=== PATIENT | male | born 1965 | race Caucasian/White ===

== ENCOUNTER 2020-02-14 12:04 | Inpatient (IN) | payer MEDICAID ==
[2020-02-14] VITALS (7 sets, daily range): BP systolic 72–122; BP diastolic 29–86
[~2020-02-14] VITALS: Ht 182.9 cm; Wt 120.0 kg
[~2020-02-14 12:04] MED LIST: SODIUM BICARB 8.4%, 50ML SYRINGE ONE
[2020-02-14] MEDS ORDERED: VECURONIUM 10 MG ONE (12:11)
[2020-02-14] MEDS ORDERED: OCTREOTIDE 100MCG/ML, 1ML (0.1MG/ML) ONE (12:12)
[2020-02-14] MEDS ORDERED: PANTOPRAZOLE 40 MG IV ONE (12:12)
[2020-02-14] MEDS ORDERED: PANTOPRAZOLE 80 MG in SODIUM CHLORIDE 0.9% 50 ML IVPB ONE (12:15)
[2020-02-14] MEDS ORDERED: PANTOPRAZOLE 80 MG in SODIUM CHLORIDE 0.9% 100 ML IV SCH ×2 (12:15→15:30)
--- NOTE | 2020-02-14 12:29 | NUR ---
BIB BY YUKO FOR VARICEAL BLEED->BRADYCARDIA/LOST PULSES I ROUND OF CPR WITH 40 UNITS OF VASOPRESSIN. [facility]. [facility] INTUBATED GAVE 4 UNITS OF PRBC, 2 UNITS OF PLASMA, 1550 KCENTRA, 1H TXA, 40 PROTONIX, OCTREOTIDE PUSH AND INTUBATED ON ARRIVAL PATIENT CRITICAL BUT STABLE ON ETT, RILEY BLOOD FROM NG NOTED
[2020-02-14] MEDS ORDERED: VECURONIUM 10 MG IVPush ONE (12:30)
[2020-02-14] MEDS ORDERED: OCTREOTIDE 500 MCG in SODIUM CHLORIDE 0.9% 99 ML IV PRN ×2 (12:30→15:30)
[2020-02-14] MEDS ORDERED: SODIUM CHLORIDE 0.9% 1,000ML IVBOLUS ONE ×2 (12:30→15:00)
[2020-02-14] MEDS ORDERED: PLEASE ENTER HEIGHT AND WEIGHT MC SCH (12:30)
[2020-02-14] MEDS ORDERED: OCTREOTIDE 100MCG/ML, 1ML (0.1MG/ML) IV ONE (12:30)
[2020-02-14] MEDS ORDERED: PLEASE ENTER ALLERGIES MC SCH (12:30)
--- NOTE | 2020-02-14 12:30 | NUR ---
LAB AT BEDSIDE 500ML OF RILEY BLOOD NOTED FROM NG-PROVIDER WOULD LIKE 2 UNITS UNMATACHED PRBC [facility]OOD BANK CALLED
[2020-02-14 12:39] LABS: MEAN CORPUSCULAR HEMOGLOBIN 28.9 pg (27.5-34.5); MEAN CORPUSCULAR HGB CONC 31.4 g/dL (33.2-36.2); MEAN PLATELET VOLUME 6.7 fL (7.4-10.4); PLATELET COUNT 260 x10^3/uL (130-400); RED CELL DISTRIBUTION WIDTH 16.7 % (9.4-14.8)
--- NOTE | 2020-02-14 12:45 | NUR ---
1 UNIT PRBC STARTED VIA PRESSURE BAG/ WELL 1 LITER OF NS
[2020-02-14 12:47] LABS: INTERNATIONAL NORMALIZED RATIO 1.25 (0.93-1.1); PROTHROMBIN TIME 12.9 Seconds (9.6-11.5)
[2020-02-14 12:48] LABS: ALANINE AMINOTRANSFERASE 290 U/L (12-78); ALBUMIN 1.6 g/dL (3.4-5.0); ANION GAP 20 mmol/L (5-15); CALCIUM 7.8 mg/dL (8.5-10.1); CHLORIDE 106 mmol/L (98-107); CREATININE 1.78 mg/dL (0.7-1.3)
[2020-02-14 12:50] LABS: ALKALINE PHOSPHATASE 91 U/L (45-117); BILIRUBIN,TOTAL 0.5 mg/dL (0.2-1.0); MD YES; TOTAL PROTEIN 4.2 g/dL (6.4-8.2)
--- NOTE | 2020-02-14 12:50 | NUR ---
/, 90, 1ST UNIT OF PRBC COMPLETE ([id number]) SECOND UNIT INFUSING RAPIDLY VIA TRANSFUSER RILEY BLOOD DRAINING AT RAPID RATE FROM NG PROTONIX/OCTREOTIDE DRIPS STARTED
--- NOTE | 2020-02-14 12:50 | NUR ---
2ND UNIT OF PRBCS ADMINISTERED VIA LEVEL 1 TRANSFUSER 89/56, 90
[2020-02-14 13:01] LABS: EOS#(MANUAL) 0.26 x10^3/uL (0.0-0.4); EOS% (MANUAL) 1 % (1-7); METAMYELOCYTES# (MANUAL) 0.79 x10^3/uL (0-0); METAMYELOCYTES% (MANUAL) 3 % (0-1); MONOS#(MANUAL) 0.79 x10^3/uL (0.3-2.7); MONOS% (MANUAL) 3 % (2-9)
[2020-02-14 13:02] LABS: BAND#(MANUAL) 3.68 x10^3/uL; BANDS%(MANUAL) 14 % (0-7); LYMPHS% (MANUAL) 8 % (22-44); MYELOCYTES# (MANUAL) 0.53 x10^3/uL (0-0); MYELOCYTES% (MANUAL) 2 % (0-0); SEG#(MANUAL) 18.15 x10^3/uL (1.8-6.8); SEGS% (MANUAL) 69 % (42-75)
[2020-02-14 13:03] LABS: ANISOCYTOSIS 1+; ECHINOCYTES 2+; POLYCHROMASIA 1+
[2020-02-14 13:04] LABS: OVALOCYTES 1+
--- NOTE | 2020-02-14 13:04 | NUR ---
2 UNIT OF PRBC COMPLETE ([id number])
[2020-02-14 13:05] LABS: <PLATELET ESTIMATE> ADEQUATE; <PLT MORPHOLOGY> NORMAL PLT MORPH
--- NOTE | 2020-02-14 13:08 | NUR ---
1GM OF CALCIUM GLUCONATE ADMINISTERED (FOR CITRATE D/T PRBC INFUSION)
--- NOTE | 2020-02-14 13:15 | NUR ---
PLASMA REQUESTED FROM PHARMACY (NEED 30 MINUTES TO THAW) 3RD UNIT PRBC ADMINISTERD VIA LEVEL 1
--- NOTE | 2020-02-14 13:24 | NUR ---
3RD UNIT PRBC COMPLETED ([id number]) CONTINUES TO MASSIVELY BLEED FROM NG/ ABDOMEN DISTENDING MORESO WELL -GASTROENTROLOGY UNAVAILBLE UNTIL 230PM-ER PROVIDER TO PLACE KARTHIK TUBE TO TAMPONADE ESOPHAGUS
--- NOTE | 2020-02-14 13:30 | NUR ---
PLASMA STILL UNAVAILABLE (BEING THAWED) 4TH UNIT OF PRBC ADMINISTERED VIA LEVEL 1 TRANSFUSER
--- NOTE | 2020-02-14 13:45 | NUR ---
ER PROVIDER ABLE TO PLACE KARTHIK TUBE SUCCESFULLY 4TH UNIT OF PRBC COMPLETE([id number]) 1ST DOSE OF PLASMA ADMINISTERED
--- NOTE | 2020-02-14 13:48 | NUR ---
CXR AT BEDSIDE TO VERIFY KARTHIK TUBE DOSE OF PLASMA COMPLETE ([id number])
--- NOTE | 2020-02-14 13:54 | NUR ---
2ND DOSE OF PLASMA COMPLETE ([id number])
--- NOTE | 2020-02-14 14:05 | NUR ---
1 DOSE OF PLATLETS COMPLETED ([id number]) KARTHIK TUBE VERIFIED IN PLACE WITH CXR
--- NOTE | 2020-02-14 14:25 | NUR ---
5TH UNIT OF PRBC ADMINISTERED WATERS WITH NO OUTPUT-REPLACED WITH NEW WATERS-PROVIDER AT BEDSIDE TO VISUALIZE WITH ULTRASOUND-NO VISUALIZATION WITH ULTRASOUND
--- NOTE | 2020-02-14 14:34 | NUR ---
RT AT BEDSIDE VENT RATE INCREASED TO 18
--- NOTE | 2020-02-14 14:38 | NUR ---
5TH UNIT OF PRBC COMPLETE ([id number])
[2020-02-14] MEDS ORDERED: SODIUM BICARB 8.4%, 50ML SYRINGE ONE (14:39)
--- NOTE | 2020-02-14 14:44 | NUR ---
TOTAL OF 1200ML OF RILEY BLOOD FROM NG LARGE UNQUATIFIED AMOUNT FROM RECTUM WELL
--- NOTE | 2020-02-14 14:48 | NUR ---
6TH UNIT OF BLOOD ADMINISTERED DR. EUCEDA WITH GI AT BEDSIDE Addendum: 02/14/20 at 1513 by RFJESUSING UNIT NOTED TO BE A- (T/S A+) BLOOD BANK CALLED. INSULATION BOARD BACK TENDER REPORTS THERE SHOULD BE NO ISSUE WITH ADMIN
[2020-02-14] MEDS ORDERED: SODIUM BICARBONATE 1 MEQ/ML, 50ML VIAL IVPush ONE ×2 (15:00→15:30)
[2020-02-14] MEDS ORDERED: ALBUMIN HUMAN 25% 100 ML IV ONE ×5 (15:00→17:00)
--- NOTE | 2020-02-14 15:11 | NUR ---
6TH UNIT OF PRBCS COMPLETE ([id number]) DR. EUCEDA AT BEDSIDE PERFORMING ENDOSCOPY AFTER REMOVAL OF KARTHIK TUBE
--- NOTE | 2020-02-14 15:28 | NUR ---
Endoscopy completed. Pt maintained stable VS throughout. No change in pt condition.
[2020-02-14] MEDS ORDERED: SODIUM BICARBONATE 8.4% 150 MEQ in DEXTROSE 5% 1,000 ML IV SCH ×2 (15:30→18:30)
[2020-02-14] MEDS ORDERED: CEFTRIAXONE PMX 2GM/50ML 50 ML IV SCH (15:30)
[2020-02-14] MEDS ORDERED: NOREPINEPHRINE 32 MG in SODIUM CHLORIDE 0.9% 218 ML IV PRN (15:30)
[2020-02-14] MEDS ORDERED: morphine SULFATE 10 MG/ML, 1ML IVPush PRN (15:30)
[2020-02-14] MEDS ORDERED: OXYcodone IR 5MG TABLET PO PRN (15:30)
[2020-02-14] MEDS ORDERED: POLYETHYLENE GLYCOL 17 GM PACKET PO PRN (15:30)
[2020-02-14] MEDS ORDERED: ONDANSETRON 2MG/ML, 2ML IVPush PRN (15:30)
[2020-02-14] MEDS ORDERED: BISACODYL 10 MG SUPP PR PRN ×2 (15:30→19:00)
[2020-02-14] MEDS ORDERED: PANTOPRAZOLE 40 MG IV IVPush ONE (15:30)
[2020-02-14] MEDS ORDERED: CEFTRIAXONE PMX 2GM/50ML 50 ML ONE (15:31)
--- NOTE | 2020-02-14 15:56 | NUR ---
Antoinette Leyva [phone]
[2020-02-14] MEDS ORDERED: LIDOCAINE 1%, 10ML ONE ×2 (16:26→17:18)
[2020-02-14] MEDS ORDERED: ALBUMIN HUMAN 25%, 25GM/100ML ONE (16:47)
--- NOTE | 2020-02-14 16:48 | NUR ---
levophed started at 0.1mcg, 50gm of albumin administered as well as the 7th unit of prbc (sbp 80, and actively having paracentesis which IR predicts will be >10liters)
[2020-02-14] MEDS ORDERED: MIDAZOLAM 100MG/100ML NS IV ONE (16:53)
[2020-02-14] MEDS ORDERED: FENTANYL PF 100 MCG/2ML ONE (16:53)
[2020-02-14] MEDS ORDERED: NALOXONE 1 MG/ML, 2ML ONE (16:53)
[2020-02-14] MEDS ORDERED: FLUMAZENIL 0.1 MG/1 ML, 5ML ONE (16:53)
[2020-02-14] MEDS ORDERED: MIDAZOLAM 1 MG/ML, 5ML ONE (16:53)
[2020-02-14] MEDS ORDERED: ALBUMIN HUMAN 25% 400 ML IV ONE (17:00)
--- NOTE | 2020-02-14 17:01 | NUR ---
PATIENT NOW GAGGING/BLINKING EYES, 8.3 LITER PULLED FROM PARACENTESIS - DR. DE SOUZA CALLED TO UPDATE. PLAN TO START VERSED DRIP, ADMINISTER ANOTHER 100GM OF ALBUMIN TO OFFSET LARGE PARACENTEAL DRAINAGE
--- NOTE | 2020-02-14 17:16 | NUR ---
1MG OF VERSED ADMINISTERED IVP FOR PROCEDURE (PARACENTTESIS)
--- NOTE | 2020-02-14 17:16 | NUR ---
ELECTRICAL ENGINEERING MANAGER ASKED [place] TO LOOK AT NON DRAINING WATERS CATHETER-[facility] FOUND THAT CATHETER NOT IN BLADDER. HE WAS UNABLE TO ADVANCE CATHETER- HE THEN PLACED SUPRAPUBIC CATHETER
[2020-02-14] MEDS ORDERED: MIDAZOLAM HCL 50 MG in SODIUM CHLORIDE 0.9% 40 ML IV PRN ×2 (17:30→18:00)
--- NOTE | 2020-02-14 17:45 | NUR ---
7TH UNIT PRBC COMPLETED (INFUSED) VERSED DRIP STARTED 50GM OF ALBUMIN INFUSED LAB AT BEDSIDE FOR FULL SET OF LABS INCLUDING ABG
--- NOTE | 2020-02-14 17:47 | NUR ---
REPORT CALLED TO SANCHO MISHRA IN CCU-TO TRANPORTS TO ICU ONCE PROCEDURE COMPLETE
--- NOTE | 2020-02-14 17:56 | NUR ---
SBP TO 50. LEVO RESTARTED/VERSED PAUSED. BOLUSED WITH 1L NS
--- NOTE | 2020-02-14 18:00 | NUR ---
8TH UNITS PRBC ADMINISTERED
--- NOTE | 2020-02-14 18:09 | NUR ---
SBP IMPROVED TO 129/69 AFTER 1 LITER BOLUS AND QUICK TITRATION OF LEVOPHED UP TO 1MCG/KG PROVIDER PLACED TO RIGHT IJ, TO CANCEL TIPS PROCEDURE "PATIENT TOO UNSTABLE" PER IR
[2020-02-14 18:11] LABS: MEAN CORPUSCULAR HEMOGLOBIN 29.9 pg (27.5-34.5); MEAN CORPUSCULAR HGB CONC 33.6 g/dL (33.2-36.2); MEAN PLATELET VOLUME 6.9 fL (7.4-10.4); PLATELET COUNT 99 x10^3/uL (130-400); RED BLOOD COUNT 2.82 x10^6/uL (4.38-5.82); RED CELL DISTRIBUTION WIDTH 15.5 % (9.4-14.8)
--- NOTE | 2020-02-14 18:16 | NUR ---
50MCG OF FENTANYL IVP FOR PROCEDUREAL PAIN (HD CATH)
[2020-02-14 18:22] LABS: ALANINE AMINOTRANSFERASE 271 U/L (12-78); ALBUMIN 2.2 g/dL (3.4-5.0); ANION GAP 21 mmol/L (5-15); CHLORIDE 113 mmol/L (98-107); CREATININE 1.42 mg/dL (0.7-1.3)
[2020-02-14] MEDS ORDERED: VISIPAQUE 270 MG/ML, 50ML BOTTLE ONE (18:23)
[2020-02-14 18:24] LABS: MD YES
[2020-02-14 18:24] LABS: ALKALINE PHOSPHATASE 40 U/L (45-117); TOTAL PROTEIN 3.4 g/dL (6.4-8.2)
[2020-02-14 18:26] LABS: BAND#(MANUAL) 0.78 x10^3/uL; BANDS%(MANUAL) 8 % (0-7); LYMPH#(MANUAL) 1.27 x10^3/uL (1-3.4); LYMPHS% (MANUAL) 13 % (22-44); MONOS#(MANUAL) 0.69 x10^3/uL (0.3-2.7); MONOS% (MANUAL) 7 % (2-9); SEG#(MANUAL) 7.06 x10^3/uL (1.8-6.8); SEGS% (MANUAL) 72 % (42-75)
[2020-02-14 18:26] LABS: INTERNATIONAL NORMALIZED RATIO 2.3 (0.93-1.1); PROTHROMBIN TIME 23.9 Seconds (9.6-11.5)
[2020-02-14 18:27] LABS: ANISOCYTOSIS 1+; OVALOCYTES 1+; POLYCHROMASIA 1+
[2020-02-14 18:28] LABS: <PLATELET ESTIMATE> DECREASED; <PLT MORPHOLOGY> NORMAL PLT MORPH; ECHINOCYTES 1+
--- NOTE | 2020-02-14 18:30 | NUR ---
Transferred to CCU
[2020-02-14 18:33] LABS: CALCIUM 5.9 mg/dL (8.5-10.1)
[2020-02-14] MEDS ORDERED: NOREPINEPHRINE 8 MG in SODIUM CHLORIDE 0.9% 242 ML IV PRN (18:41)
[2020-02-14] MEDS ORDERED: PROPOFOL 100 ML IV PRN (18:41)
[2020-02-14] MEDS ORDERED: VASOPRESSIN 20 UNIT in SODIUM CHLORIDE 0.9% 99 ML IV PRN (18:41)
[2020-02-14] MEDS ORDERED: PHENYLEPHRINE 50 MG in SODIUM CHLORIDE 0.9% 245 ML IV PRN (18:41)
[2020-02-14] MEDS ORDERED: PHENYLEPHRINE 10 MG/ML ONE (18:56)
[2020-02-14] MEDS ORDERED: CALCIUM CHLORIDE 10%, 10ML SYR ONE (18:58)
[2020-02-14] MEDS ORDERED: GLUCAGON 1 MG IM PRN (19:00)
[2020-02-14] MEDS ORDERED: ALBUTEROL/IPRATROPIUM 2.5MG/0.5MG, 3 ML INLINE SCH (19:00)
[2020-02-14] MEDS ORDERED: PHARMACY MAY ADJ FOR RENAL FX MC SCH (19:00)
[2020-02-14] MEDS ORDERED: DEXTROSE 4 GM TAB.CHEW PO PRN (19:00)
[2020-02-14] MEDS ORDERED: LACTULOSE 20 GM/30 ML UDC NG PRN (19:00)
[2020-02-14] MEDS ORDERED: DEXTROSE 50%, 50ML SYRINGE IVPush PRN (19:00)
[2020-02-14] MEDS ORDERED: SENNA 176 MG/5 ML ORAL SOL NG PRN (19:00)
[2020-02-14] MEDS ORDERED: CALCIUM GLUCONATE 4.6 MEQ in SODIUM CHLORIDE 0.9% 100 ML IV ONE (19:00)
[2020-02-14] MEDS ORDERED: LIDOCAINE-MPF 1%, 2ML ENDO PRN (19:00)
[2020-02-14] MEDS ORDERED: SENNA/DOCUSATE TABLET NG PRN (19:00)
[2020-02-14] MEDS ORDERED: FENTANYL PF 100 MCG/2ML IVPush PRN (19:00)
[2020-02-14 19:27] LABS: TROPONIN I 0.082 ng/mL (0.000-0.045)
[2020-02-14] MEDS ORDERED: NOVOSEVEN RT (FACTOR VIIA) RECOMB 1,000 MCG IVPush PRN (19:30)
[2020-02-14] MEDS ORDERED: PIPERACILLIN/TAZO/PMX 3.375GM 50 ML IV SCH (19:30)
--- NOTE | 2020-02-14 19:44 | NUR ---
See scanned Emergency Blood Release/Massive Transfusion Record for blood admin record
[2020-02-14] MEDS ORDERED: ALBUMIN HUMAN 5% 500 ML IV ONE ×2 (20:00)
[2020-02-14] MEDS ORDERED: LORazepam 2 MG/ML, 1ML ONE (20:06)
[2020-02-14] MEDS ORDERED: LORazepam 2 MG/ML, 1ML IVPush ONE (20:30)
[2020-02-14] MEDS ORDERED: TRANEXAMIC ACID 1,000 MG in SODIUM CHLORIDE 0.9% 100 ML IVPB ONE (20:30)
[2020-02-14] MEDS ORDERED: SODIUM CHLORIDE FLUSH 10ML SYR IVF SCH (21:00)
[2020-02-14] MEDS ORDERED: MORPHINE SULFATE 4 MG/ML, 1ML ONE (21:24)
[2020-02-14] MEDS ORDERED: LORazepam 2 MG/ML, 1ML IV PRN (22:00)
[2020-02-14] MEDS ORDERED: SCOPOLAMINE 1MG PATCH TD PRN (22:00)
[2020-02-14] MEDS ORDERED: ONDANSETRON 2MG/ML, 2ML IV PRN (22:00)
[2020-02-14] MEDS ORDERED: MORPHINE SULFATE 4 MG/ML, 1ML IV PRN (22:00)
[2020-02-14] MEDS ORDERED: SCOPOLAMINE PATCH, 1.5MG PATCH.TD72 TD PRN (22:00)
[2020-02-14] MEDS ORDERED: ATROPINE OPHTH SOLN 1%, 5ML PO PRN (22:00)
[2020-02-14] MEDS ORDERED: LORazepam 2 MG/ML, 1ML IV ONE (22:00)
[2020-02-14] MEDS ORDERED: MORPHINE SULFATE 4 MG/ML, 1ML IV ONE (22:00)
[2020-02-15] MEDS ORDERED: SODIUM CHLORIDE FLUSH 10ML SYR IVF SCH (09:00)
[2020-02-15] MEDS ORDERED: SENNA/DOCUSATE TABLET PO SCH (09:00)
== END 2020-02-15 02:19 | DRG 280 ==
LOC: ED 13:44 → EDIP 14:53 → CCU 18:19
PROVIDERS: ADMIT Internal Medicine; ATTEND Internal Medicine
PROC: B548ZZA Ultrasonography of Superior Vena Cava, Guidance (ICD-10-PCS; 2020-02-14)
PROC: B5181ZA Fluoroscopy of Superior Vena Cava using Low Osmolar Contrast, Guidance (ICD-10-PCS; 2020-02-14)
PROC: 30233M1 Transfusion of Nonautologous Plasma Cryoprecipitate into Peripheral Vein, Percutaneous Approach (ICD-10-PCS; 2020-02-14)
PROC: 30233N1 Transfusion of Nonautologous Red Blood Cells into Peripheral Vein, Percutaneous Approach (ICD-10-PCS; 2020-02-14)
PROC: 30233R1 Transfusion of Nonautologous Platelets into Peripheral Vein, Percutaneous Approach (ICD-10-PCS; 2020-02-14)
PROC: 0BH17EZ Insertion of Endotracheal Airway into Trachea, Via Natural or Artificial Opening (ICD-10-PCS; 2020-02-14)
PROC: 30233K1 Transfusion of Nonautologous Frozen Plasma into Peripheral Vein, Percutaneous Approach (ICD-10-PCS; 2020-02-14)
PROC: 0DJ08ZZ Inspection of Upper Intestinal Tract, Via Natural or Artificial Opening Endoscopic (ICD-10-PCS; 2020-02-14)
PROC: 5A1935Z Respiratory Ventilation, Less than 24 Consecutive Hours (ICD-10-PCS; 2020-02-14)
PROC: 02HV33Z Insertion of Infusion Device into Superior Vena Cava, Percutaneous Approach (ICD-10-PCS; principal; 2020-02-14 15:44)
PROC: 0W9G30Z Drainage of Peritoneal Cavity with Drainage Device, Percutaneous Approach (ICD-10-PCS; 2020-02-15)
DX: K70.31 Alcoholic cirrhosis of liver with ascites (principal); I85.11 Secondary esophageal varices with bleeding; I86.4 Gastric varices; D62 Acute posthemorrhagic anemia; D68.9 Coagulation defect, unspecified; E43 Unspecified severe protein-calorie malnutrition; E86.1 Hypovolemia; E87.2 Acidosis; G83.9 Paralytic syndrome, unspecified; I46.9 Cardiac arrest, cause unspecified; J96.01 Acute respiratory failure with hypoxia; K31.89 Other diseases of stomach and duodenum; K72.90 Hepatic failure, unspecified without coma; K80.30 Calculus of bile duct with cholangitis, unspecified, without obstruction; N17.0 Acute kidney failure with tubular necrosis; R57.8 Other shock; F10.239 Alcohol dependence with withdrawal, unspecified; I95.9 Hypotension, unspecified
CPT/HCPCS: 36555; 36556; 36600; 37182; 49083; 51703; 71045; 74018; 75989; 76937; 80053; 80074; 82140; 82803; 83605; 83690; 83735; 84100; 84478; 84484; 85025; 85610; 86850; 86900; 86923; 87070; 87205; 93005; 94002; 94003; 96374; 96375; 99156; 99157; 99291; 99292; C1894; G0378; J0610; J0696; J2250; J2354; J3010; J7070; J7189; P9045; P9047; Q9966; C1729; C1751; C1769; C9113; J1642; J2060; J2270; J2310; J7030; J7050; P9012; P9016; P9017; P9035